=== PATIENT | female | born 1940 | race African-American/Black ===

== ENCOUNTER 2017-04-22 17:38 | Emergency (ER) | payer MEDICARE, MEDICAID ==
[~2017-04-22] VITALS: Ht 160 cm; Wt 82.0 kg
[~2017-04-22 17:38] MED LIST: AMIT25TA9; AMLO5TAB4; CLOB60CR4; DONE5TAB33; HYDR-4005; LANS30CA55; MELO-57; MEMA10TA11; RISE35TA8; ROSU10TA
[2017-04-22] MEDS ORDERED: SODIUM CHLORIDE 0.9% 1,000 ML IV ONE (18:34)
[2017-04-22] MEDS ORDERED: KETOROLAC 30MG/ML VIAL IV ONE (18:45)
[2017-04-22] MEDS ORDERED: LORAZEPAM 2MG/ML CPJ IV PRN (18:45)
[2017-04-22 18:56] LABS: BASOPHILS % 1.3 % (0.0-2.0); EOSINOPHILS % 1.8 % (0.0-5.0); HEMATOCRIT. 34.4 % (36.0-48.0); HEMOGLOBIN. 11.4 g/dL (12.0-16.0); MEAN CORPUSCULAR HEMOGLOBIN 29.8 pg (28.0-32.0); MEAN CORPUSCULAR VOLUME 89.9 fL (81.0-99.0); MEAN PLATELET VOLUME 6.9 fl (7.4-10.4); NEUTROPHILS % 43.9 % (40.0-76.0); PLATELET 205 x1000/uL (130-400); RED BLOOD CELL COUNT 3.83 mill/uL (4.2-5.4); RED CELL DISTRIBUTION WIDTH 13.2 % (11.6-14.6)
[2017-04-22 19:02] LABS: CHLORIDE 109 mEq/L (98-107)
[2017-04-22 19:06] LABS: CARBON DIOXIDE 28 mEq/L (21-32); ETHANOL BLOOD < 10 mg/dL
[2017-04-22 20:16] LABS: CLARITY URINE CLEAR (CLEAR); COLOR URINE YELLOW (YELLOW); GLUCOSE URINE NEGATIVE (NEGATIVE); KETONES URINE NEGATIVE (NEGATIVE); LEUKOCYTE ESTERASE URINE NEGATIVE (NEGATIVE); NITRITE URINE NEGATIVE (NEGATIVE); OCCULT BLOOD URINE NEGATIVE (NEGATIVE); PH URINE 6.5 (4.5-8.0); PROTEIN URINE NEGATIVE (NEGATIVE); SPECIFIC GRAVITY URINE 1.014 (1.005-1.030); UROBILINOGEN URINE 0.2 E.U./dL (0.2-1.0)
[2017-04-22 20:26] LABS: *AMPHETAMINES SCREEN URINE NEGATIVE (NEGATIVE); *BARBITURATES SCREEN URINE NEGATIVE (NEGATIVE); *BENZODIAZEPINES SCREEN URINE NEGATIVE (NEGATIVE); *COCAINE SCREEN URINE NEGATIVE (NEGATIVE); CANNABINOID URINE SCREEN NEGATIVE (NEGATIVE); METHADONE URINE SCREEN NEGATIVE (NEGATIVE); OPIATES URINE SCREEN PRESUMTIVE POSITIVE (NEGATIVE); PHENCYCLIDINE URINE SCREEN NEGATIVE (NEGATIVE)
[2017-04-22 20:53] VITALS: BP 127/72
== END 2017-04-22 21:32 | disposition home or self-care (01) ==
LOC: ER 21:29
DX: S20.221A Contusion of right back wall of thorax, initial encounter (principal); X58.XXXA Exposure to other specified factors, initial encounter; Y93.9 Activity, unspecified; Y92.9 Unspecified place or not applicable; I10 Essential (primary) hypertension
CPT/HCPCS: 36415; 71010; 80053; 80305; 81003; 85025; 96374; 99285; G0482; J1885; J2060; J7030

== ENCOUNTER 2017-12-17 11:40 | Emergency (ER) | payer MEDICARE, MEDICAID ==
[~2017-12-17] VITALS: Ht 162.6 cm; Wt 83.0 kg
[~2017-12-17 11:40] MED LIST changes: +MELO-104; -MELO-57; -MEMA10TA11; +MEMA10TA2
[2017-12-17] MEDS ORDERED: ONDANSETRON HCL 4MG/2ML VIAL IV STA (13:02)
[2017-12-17] MEDS ORDERED: SODIUM CHLORIDE 0.9% 1,000 ML IV ONE (13:02)
[2017-12-17] MEDS ORDERED: KETOROLAC 30MG/ML VIAL IV STA (13:02)
[2017-12-17 14:15] LABS: BASOPHILS % 0.8 % (0.0-2.0); EOSINOPHILS % 0.9 % (0.0-5.0); HEMATOCRIT. 35.5 % (36.0-48.0); HEMOGLOBIN. 11.8 g/dL (12.0-16.0); LYMPHOCYTES % 38.5 % (20.0-50.0); MEAN CORPUSCULAR HEMOGLOBIN 30.8 pg (28.0-32.0); MEAN CORPUSCULAR VOLUME 92.3 fL (81.0-99.0); MEAN PLATELET VOLUME 6.9 fl (7.4-10.4); MONOCYTES % 10.3 % (2.0-8.0); NEUTROPHILS % 49.5 % (40.0-76.0); PLATELET 220 x1000/uL (130-400); RED BLOOD CELL COUNT 3.84 mill/uL (4.2-5.4)
[2017-12-17 14:19] LABS: PROTHROMBIN TIME 10.6 sec (9.4-11.6)
[2017-12-17 14:34] LABS: CARBON DIOXIDE 29 mEq/L (21-32); CHLORIDE 105 mEq/L (98-107); TROPONIN I 0.02 ng/mL (0.00-0.04)
[2017-12-17] MEDS ORDERED: IOHEXOL-300 100 ML BOTTLE ONE (16:46)
[2017-12-17 18:50] LABS: CLARITY URINE CLEAR (CLEAR); COLOR URINE YELLOW (YELLOW); KETONES URINE NEGATIVE (NEGATIVE); LEUKOCYTE ESTERASE URINE NEGATIVE (NEGATIVE); NITRITE URINE NEGATIVE (NEGATIVE); OCCULT BLOOD URINE NEGATIVE (NEGATIVE); PH URINE 5.5 (4.5-8.0); PROTEIN URINE NEGATIVE (NEGATIVE); SPECIFIC GRAVITY URINE 1.041 (1.005-1.030); UROBILINOGEN URINE 0.2 E.U./dL (0.2-1.0)
[2017-12-17 19:45] VITALS: BP 154/70
== END 2017-12-17 19:50 | disposition home or self-care (01) ==
LOC: ER 13:15
DX: R05 Cough (principal); K21.9 Gastro-esophageal reflux disease without esophagitis; I10 Essential (primary) hypertension; E78.00 Pure hypercholesterolemia, unspecified; M19.90 Unspecified osteoarthritis, unspecified site; F03.90 Unspecified dementia, unspecified severity, without behavioral disturbance, psychotic disturbance, mood disturbance, and anxiety
CPT/HCPCS: 36415; 71045; 74177; 80053; 81003; 83605; 83690; 83880; 84484; 85025; 85610; 93005; 96361; 96374; 96375; 99285; J1885; J2405; J7030; Q9967

== ENCOUNTER 2018-07-08 12:44 | Emergency (ER) | payer MEDICARE, MEDICAID ==
[~2018-07-08] VITALS: Ht 162.6 cm; Wt 84.0 kg
[2018-07-08 14:26] LABS: BASOPHILS % 1.1 % (0.0-2.0); EOSINOPHILS % 3.8 % (0.0-5.0); HEMATOCRIT. 32.4 % (36.0-48.0); HEMOGLOBIN. 10.9 g/dL (12.0-16.0); LYMPHOCYTES % 45.7 % (20.0-50.0); MEAN CORPUSCULAR HEMOGLOBIN 30.9 pg (28.0-32.0); MEAN CORPUSCULAR VOLUME 91.8 fL (81.0-99.0); MEAN PLATELET VOLUME 7.6 fl (7.4-10.4); MONOCYTES % 11.4 % (2.0-8.0); PLATELET 225 x1000/uL (130-400); RED BLOOD CELL COUNT 3.53 mill/uL (4.2-5.4); RED CELL DISTRIBUTION WIDTH 13.3 % (11.6-14.6)
[2018-07-08 14:29] LABS: CHLORIDE 110 mEq/L (98-107)
[2018-07-08] MEDS ORDERED: IBUPROFEN 600MG TABLET PO ONE (15:30)
[2018-07-08] MEDS ORDERED: TRAMADOL 50MG TABLET PO ONE (15:30)
[2018-07-08 18:44] VITALS: BP 131/70
== END 2018-07-08 19:14 | disposition home or self-care (01) ==
LOC: ER 12:44
DX: M17.0 Bilateral primary osteoarthritis of knee (principal); R26.2 Difficulty in walking, not elsewhere classified; I10 Essential (primary) hypertension; E78.00 Pure hypercholesterolemia, unspecified; F03.90 Unspecified dementia, unspecified severity, without behavioral disturbance, psychotic disturbance, mood disturbance, and anxiety; Z79.899 Other long term (current) drug therapy
CPT/HCPCS: 36415; 71045; 80053; 83880; 84484; 85025; 85379; 85610; 93005; 99285

== ENCOUNTER 2019-08-07 07:12 | Emergency (ER) | payer MEDICARE, MEDICAID ==
[~2019-08-07] VITALS: Ht 162.6 cm; Wt 84.0 kg
[~2019-08-07 07:12] MED LIST changes: +CRES10; -ROSU10TA
[2019-08-07] MEDS ORDERED: MORPHINE SULFATE 10 MG/ML CPJ IM ONE (07:45)
[2019-08-07] MEDS ORDERED: KETOROLAC 60MG/2ML VIAL IM ONE (07:45)
[2019-08-07 08:17] LABS: BASOPHILS % 0.9 % (0.0-2.0); EOSINOPHILS % 3.1 % (0.0-5.0); HEMATOCRIT. 32.2 % (36.0-48.0); HEMOGLOBIN. 10.6 g/dL (12.0-16.0); LYMPHOCYTES % 49.4 % (20.0-50.0); MEAN CORPUSCULAR VOLUME 94.3 fL (81.0-99.0); MEAN PLATELET VOLUME 7.5 fl (7.4-10.4); MONOCYTES % 7.5 % (2.0-8.0); NEUTROPHILS % 39.1 % (40.0-76.0); PLATELET 198 x1000/uL (130-400); RED BLOOD CELL COUNT 3.41 mill/uL (4.2-5.4); RED CELL DISTRIBUTION WIDTH 13.5 % (11.6-14.6)
[2019-08-07 08:29] LABS: CHLORIDE 111 mEq/L (98-107)
[2019-08-07 08:39] LABS: CLARITY URINE CLOUDY (CLEAR); COLOR URINE YELLOW (YELLOW); KETONES URINE NEGATIVE (NEGATIVE); LEUKOCYTE ESTERASE URINE 1+ (NEGATIVE); NITRITE URINE NEGATIVE (NEGATIVE); OCCULT BLOOD URINE NEGATIVE (NEGATIVE); PROTEIN URINE NEGATIVE (NEGATIVE); SPECIFIC GRAVITY URINE 1.014 (1.005-1.030); UROBILINOGEN URINE 0.2 E.U./dL (0.2-1.0)
[2019-08-07 08:56] VITALS: BP 122/49
== END 2019-08-07 09:07 | disposition home or self-care (01) ==
LOC: ER 08:18
DX: M19.90 Unspecified osteoarthritis, unspecified site (principal); M25.551 Pain in right hip; N39.0 Urinary tract infection, site not specified; I10 Essential (primary) hypertension
CPT/HCPCS: 36415; 72170; 80053; 81003; 83690; 83880; 84484; 85025; 87086; 96372; 99284; J1885; J2270

== ENCOUNTER 2019-11-11 09:45 | Emergency (ER) | payer MEDICARE, MEDICAID ==
[~2019-11-11] VITALS: Ht 162.6 cm; Wt 90.0 kg
[2019-11-11] MEDS ORDERED: TETRACAINE 0.5% OPHTH DROPS 4ML RIGHTEYE ONE (12:30)
[2019-11-11] MEDS ORDERED: FLUORESCEIN SODIUM 1MG/STRIP RIGHTEYE ONE (12:30)
[2019-11-11 13:47] VITALS: BP 130/60
== END 2019-11-11 13:39 | disposition home or self-care (01) ==
LOC: ER 09:45
DX: H11.31 Conjunctival hemorrhage, right eye (principal); I10 Essential (primary) hypertension; M19.90 Unspecified osteoarthritis, unspecified site
CPT/HCPCS: 99283

== ENCOUNTER 2020-01-10 15:59 | Emergency (ER) | payer MEDICARE, MEDICAID ==
[~2020-01-10] VITALS: Ht 162.6 cm; Wt 83.0 kg
[2020-01-10 16:15] VITALS: BP 144/69
== END 2020-01-10 19:21 | disposition home or self-care (01) ==
LOC: ER 15:59
DX: J06.9 Acute upper respiratory infection, unspecified (principal); I10 Essential (primary) hypertension; Z87.39 Personal history of other diseases of the musculoskeletal system and connective tissue
CPT/HCPCS: 99283

== ENCOUNTER 2021-07-01 16:02 | Emergency (ER) | payer MEDICARE, MEDICAID ==
[~2021-07-01] VITALS: Ht 162.6 cm; Wt 79.0 kg
[2021-07-01 16:12] VITALS: BP 105/53
[2021-07-01] MEDS ORDERED: DOXY100C2 MT (17:50)
== END 2021-07-01 18:34 | disposition home or self-care (01) ==
LOC: ER 16:02
DX: L03.115 Cellulitis of right lower limb (principal); I10 Essential (primary) hypertension; Z79.899 Other long term (current) drug therapy
CPT/HCPCS: 99281

== ENCOUNTER 2021-07-08 15:08 | Emergency (ER) | payer MEDICARE, MEDICAID ==
[~2021-07-08] VITALS: Ht 162.6 cm; Wt 80.0 kg
[~2021-07-08 15:08] MED LIST changes: +DOXY100C2 MT
[2021-07-08 19:25] VITALS: BP 148/80
== END 2021-07-08 18:45 | disposition home or self-care (01) ==
LOC: ER 15:08
DX: L03.115 Cellulitis of right lower limb (principal); I10 Essential (primary) hypertension; Z79.899 Other long term (current) drug therapy; Z98.890 Other specified postprocedural states
CPT/HCPCS: 93971; 99284

== ENCOUNTER 2021-08-07 13:40 | Emergency (ER) | payer MEDICARE, MEDICAID ==
[~2021-08-07] VITALS: Ht 170.2 cm; Wt 70.0 kg
[~2021-08-07 13:40] MED LIST changes: -MEMA10TA2; +MEMA10TA2 PO
[2021-08-07] MEDS ORDERED: ALBUTEROL 6.7GM HFA INHALER ORI ONE (14:45)
[2021-08-07] MEDS ORDERED: ALBU6.7H9 INH (15:49)
[2021-08-07 16:41] VITALS: BP 149/84
[2021-08-14] MEDS ORDERED: FERR325T6 PO (23:07)
[2021-08-14] MEDS ORDERED: DONE10TA36 PO (23:07)
[2021-08-14] MEDS ORDERED: AMLO5TAB88 PO (23:07)
[2021-08-14] MEDS ORDERED: ATOR40TA70 PO (23:07)
[2021-08-14] MEDS ORDERED: OMEP20TA2 PO (23:07)
== END 2021-08-07 16:43 | disposition home or self-care (01) ==
LOC: ER 13:40
DX: T59.91XA Toxic effect of unspecified gases, fumes and vapors, accidental (unintentional), initial encounter (principal); X58.XXXA Exposure to other specified factors, initial encounter; Y93.89 Activity, other specified; Y92.89 Other specified places as the place of occurrence of the external cause; Y99.8 Other external cause status
CPT/HCPCS: 71045; 93005; 99283

== ENCOUNTER 2023-08-22 17:46 | Emergency (ER) | payer MEDICARE, MEDICAID ==
[~2023-08-22] VITALS: Ht 162.6 cm; Wt 76.0 kg
[~2023-08-22 17:46] MED LIST changes: +ALBU6.7H3 INH; -AMIT25TA9; -AMLO5TAB4; +AMLO5TAB88 PO; +ATOR40TA70 PO; -CLOB60CR4; -CRES10; +DONE-53 PO; -DONE5TAB33; -DOXY100C2 MT; +FERR325T6 PO; -HYDR-4005; -LANS30CA55; -MELO-104; +OMEP20TA23 PO; -RISE35TA8
[2023-08-22 17:54] VITALS: BP 125/53; PULSE 72; RESP 18; O2SAT 99
[2023-08-22 18:30] VITALS: TEMP 98.9
[2023-08-22] MEDS ORDERED: ACETAMINOPHEN 325MG TABLET PO ONE (18:30)
[2023-08-22] MEDS ORDERED: CAPS42.514 TP (20:25)
== END 2023-08-22 21:48 | disposition home or self-care (01) ==
LOC: ER 17:46
DX: M25.511 Pain in right shoulder (principal); M19.011 Primary osteoarthritis, right shoulder; F03.90 Unspecified dementia, unspecified severity, without behavioral disturbance, psychotic disturbance, mood disturbance, and anxiety; I10 Essential (primary) hypertension; Z79.899 Other long term (current) drug therapy
CPT/HCPCS: 73030; 99283

== ENCOUNTER 2025-02-15 08:44 | Emergency (ER) | payer MEDICARE, MEDICAID ==
[~2025-02-15] VITALS: Ht 160 cm; Wt 70.0 kg
[~2025-02-15 08:44] MED LIST changes: +AMLO10TA4 MT; -AMLO5TAB88 PO; +ASPI-1406 PO; +FOLI-43 MT; +MULT-1279 MT
[2025-02-15 08:48] VITALS: BP 128/56; PULSE 70; RESP 16; TEMP 36.6; O2SAT 100
[2025-02-15 09:45] LABS: BASOPHILS % 0.5 % (0.0-2.0); DIFFERENTIAL COMMENT 0; EOSINOPHILS % 3.4 % (0.0-5.0); HEMATOCRIT. 24.8 % (36.0-48.0); HEMOGLOBIN. 7.9 g/dL (12.0-16.0); LYMPHOCYTES % 39.1 % (20.0-50.0); MEAN CORPUSCULAR HEMOGLOBIN 32.5 pg (28.0-32.0); MEAN CORPUSCULAR HGB CONC 31.8 g/dL (31.0-37.0); MEAN CORPUSCULAR VOLUME 102.2 fL (81.0-99.0); MEAN PLATELET VOLUME 7.7 fl (7.4-10.4); MONOCYTES % 8.6 % (2.0-8.0); NEUTROPHILS % 48.4 % (40.0-76.0); PLATELET 210 x1000/uL (130-400); RED BLOOD CELL COUNT 2.42 mill/uL (4.2-5.4); RED CELL DISTRIBUTION WIDTH 15.9 % (11.6-14.6); WHITE BLOOD COUNT 3.1 x1000/uL (4.5-11.0)
[2025-02-15 09:56] LABS: CHLORIDE 107 mEq/L (98-107); SODIUM 144 mEq/L (136-145)
[2025-02-15 09:57] LABS: CARBON DIOXIDE 29 mEq/L (21-32)
[2025-02-15 10:03] LABS: GLUCOSE 95 mg/dL (70-105); TROPONIN I HIGH SENSITIVITY 10 ng/L (3.0-34); UREA NITROGEN BLOOD 24 mg/dL (9-23)
[2025-02-15 10:07] LABS: THYROID STIMULATING HORMONE 0.66 uIU/mL (0.55-4.78)
[2025-02-15 11:13] LABS: TROPONIN I HIGH SENSITIVITY 10 ng/L (3.0-34)
== END 2025-02-15 09:21 | disposition home or self-care (01) ==
LOC: ER 08:44
DX: R00.2 Palpitations (principal); I10 Essential (primary) hypertension; M19.90 Unspecified osteoarthritis, unspecified site; Z79.82 Long term (current) use of aspirin; Z79.899 Other long term (current) drug therapy
CPT/HCPCS: 36415; 71045; 80048; 84443; 84484; 85025; 93005; 99285

== ENCOUNTER 2025-04-27 10:30 | Inpatient (IN) | payer MEDICARE, MEDICAID ==
[~2025-04-27] VITALS: Ht 162.6 cm; Wt 61.2 kg
[~2025-04-27 10:30] MED LIST changes: +AMLO-905 MT; -AMLO10TA4 MT; -ASPI-1406 PO
[2025-04-27] MEDS: ACETAMINOPHEN 325MG TABLET PO ONE (10:45)
[2025-04-27 11:07] LABS: BASOPHILS % 0.2 % (0.0-2.0); DIFFERENTIAL COMMENT 0; HEMATOCRIT. 24.6 % (36.0-48.0); LYMPHOCYTES % 13.6 % (20.0-50.0); MEAN CORPUSCULAR HEMOGLOBIN 33.1 pg (28.0-32.0); MEAN CORPUSCULAR HGB CONC 32.7 g/dL (31.0-37.0); MONOCYTES % 5.2 % (2.0-8.0); PLATELET 229 x1000/uL (130-400); RED BLOOD CELL COUNT 2.43 mill/uL (4.2-5.4); RED CELL DISTRIBUTION WIDTH 17.8 % (11.6-14.6)
[2025-04-27 11:15] LABS: CHLORIDE 111 mEq/L (98-107); POTASSIUM 3.1 mEq/L (3.5-5.1); SODIUM 145 mEq/L (136-145)
[2025-04-27 11:17] LABS: CALCIUM 10.5 mg/dL (8.7-10.4); CARBON DIOXIDE 26 mEq/L (21-32)
[2025-04-27 11:22] LABS: CREATININE 0.8 mg/dL (0.6-1.0); GLUCOSE 116 mg/dL (70-105); UREA NITROGEN BLOOD 15 mg/dL (9-23)
[2025-04-27 11:24] LABS: ALANINE AMINOTRANSFERASE < 7 IU/L (10-49); ALBUMIN 3.4 g/dL (3.2-4.8); ASPARTATE AMINOTRANSFERASE 11 IU/L (<34); BILIRUBIN DIRECT 0.1 mg/dL (<=3.0); BILIRUBIN TOTAL 0.3 mg/dL (0.1-1.0); PROTEIN TOTAL 7.5 g/dL (6.0-8.3)
[2025-04-27] MEDS: ACETAMINOPHEN 325MG TABLET PO SCH (13:49)
[2025-04-27 16:18] VITALS: BP 135/57; PULSE 57; RESP 18; TEMP 36.5
[2025-04-27] MEDS ORDERED: IPRATROPIUM/ALBUTEROL 0.5-3(2.5)MG/3ML NEB NEB PRN (17:15)
[2025-04-27] MEDS ORDERED: ONDANSETRON HCL 4MG/2ML INJ IV PRN (17:15)
[2025-04-27] MEDS ORDERED: CLONIDINE 0.1MG TABLET PO PRN (17:15)
[2025-04-27] MEDS ORDERED: MAGNESIUM/ALUMINUM HYDROXIDE/SIMETHICONE 30ML UDC PO PRN (17:15)
[2025-04-27] MEDS ORDERED: NA PHOS,M-B/NA PHOS,DI-BA ENEMA 118ML PR PRN (17:15)
[2025-04-27 18:00] VITALS: BP 129/49; PULSE 62; RESP 18; TEMP 36.1; O2SAT 97
[2025-04-27 20:00] VITALS: BP 128/55; PULSE 71; RESP 16; TEMP 36.4; O2SAT 100
[2025-04-27] MEDS: SODIUM CHLORIDE 0.9% 1,000 ML IV SCH (21:26)
[2025-04-27] MEDS: POTASSIUM CHLORIDE 20MEQ TABLET SR PO NR (22:02)
[2025-04-27] MEDS: DOCUSATE SODIUM 100MG CAPSULE PO PRN (22:03)
[2025-04-28] VITALS: BP 119/68; PULSE 73; RESP 18; TEMP 36.7; O2SAT 99
[2025-04-28 04:00] VITALS: BP 125/55; PULSE 65; RESP 19; TEMP 36.4; O2SAT 97
[2025-04-28] MEDS: ACETAMINOPHEN 325MG TABLET PO PRN (06:25)
[2025-04-28 08:00] VITALS: BP 141/52; PULSE 64; RESP 18; TEMP 36.6; O2SAT 97
[2025-04-28 12:00] VITALS: BP 126/53; PULSE 68; RESP 18; TEMP 36.6; O2SAT 99
[2025-04-28 16:00] VITALS: BP 146/49; PULSE 65; RESP 18; TEMP 36.6; O2SAT 100
[2025-04-28 20:00] VITALS: BP 114/40; PULSE 67; RESP 18; TEMP 35.8; O2SAT 100
[2025-04-28 22:04] LABS: CALCIUM 9.8 mg/dL (8.7-10.4); CARBON DIOXIDE 25 mEq/L (21-32)
[2025-04-28 22:09] LABS: CREATININE 0.7 mg/dL (0.6-1.0); GLUCOSE 93 mg/dL (70-105); UREA NITROGEN BLOOD 10 mg/dL (9-23)
[2025-04-28 22:12] LABS: CHLORIDE 110 mEq/L (98-107); SODIUM 142 mEq/L (136-145)
[2025-04-29] VITALS: BP 139/41; PULSE 65; RESP 18; TEMP 35.7; O2SAT 98
[2025-04-29 04:00] VITALS: BP 132/50; PULSE 69; RESP 18; TEMP 36.9; O2SAT 95
[2025-04-29 08:00] VITALS: BP 133/47; PULSE 60; RESP 16; TEMP 36.4; O2SAT 100
[2025-04-29 12:00] VITALS: BP 123/38; PULSE 69; RESP 17; TEMP 36.6; O2SAT 97
[2025-04-29 12:57] LABS: BASOPHILS % 0.7 % (0.0-2.0); EOSINOPHILS % 3.1 % (0.0-5.0); HEMATOCRIT. 21.7 % (36.0-48.0); HEMOGLOBIN. 7.3 g/dL (12.0-16.0); LYMPHOCYTES % 31.7 % (20.0-50.0); MEAN CORPUSCULAR HEMOGLOBIN 33.1 pg (28.0-32.0); MEAN CORPUSCULAR HGB CONC 33.7 g/dL (31.0-37.0); MEAN CORPUSCULAR VOLUME 98.1 fL (81.0-99.0); MEAN PLATELET VOLUME 7.2 fl (7.4-10.4); MONOCYTES % 7.7 % (2.0-8.0); NEUTROPHILS % 56.8 % (40.0-76.0); PLATELET 212 x1000/uL (130-400); RED BLOOD CELL COUNT 2.21 mill/uL (4.2-5.4); WHITE BLOOD COUNT 3.8 x1000/uL (4.5-11.0)
[2025-04-29 13:03] LABS: CHLORIDE 111 mEq/L (98-107); POTASSIUM 3.3 mEq/L (3.5-5.1); SODIUM 143 mEq/L (136-145)
[2025-04-29 13:04] LABS: CARBON DIOXIDE 28 mEq/L (21-32)
[2025-04-29 13:05] LABS: CALCIUM 9.7 mg/dL (8.7-10.4)
[2025-04-29 13:10] LABS: CREATININE 0.7 mg/dL (0.6-1.0); GLUCOSE 116 mg/dL (70-105); UREA NITROGEN BLOOD 13 mg/dL (9-23)
[2025-04-29 16:00] VITALS: BP 144/54; PULSE 76; RESP 18; TEMP 36.7; O2SAT 98
[2025-04-29 16:28] VITALS: BP 144/54; PULSE 76; TEMP 98.1; O2SAT 98
[2025-04-29] MEDS ORDERED: ALBUTEROL 6.7GM HFA INHALER INH SCH (16:30)
[2025-04-29] MEDS ORDERED: ALBUTEROL (0.083%) 2.5MG/3ML NEB HHN SCH (20:00)
[2025-04-29] MEDS ORDERED: ATORVASTATIN CALCIUM 40MG TABLET PO SCH (21:00)
[2025-04-30] MEDS ORDERED: MEMANTINE HCL 10MG TABLET PO SCH (09:00)
[2025-04-30] MEDS ORDERED: FOLIC ACID 1MG TABLET PO SCH (09:00)
[2025-04-30] MEDS ORDERED: AMLODIPINE 10MG TABLET PO SCH (09:00)
== END 2025-04-29 18:40 | disposition home or self-care (01) | DRG 390 ==
LOC: ER 10:30 → 6EST 12:59 → EDBEDREQTM 13:04 → EDBEDREQ 13:04 → ENRESERV 13:21
PROVIDERS: ADMIT Internal Medicine; ATTEND Internal Medicine
DX: K56.41 Fecal impaction (principal); K57.30 Diverticulosis of large intestine without perforation or abscess without bleeding; K80.20 Calculus of gallbladder without cholecystitis without obstruction; E66.01 Morbid (severe) obesity due to excess calories; I10 Essential (primary) hypertension; D64.9 Anemia, unspecified; Z86.73 Personal history of transient ischemic attack (TIA), and cerebral infarction without residual deficits; Z68.23 Body mass index [BMI] 23.0-23.9, adult
CPT/HCPCS: 36415; 74176; 80048; 80076; 85025; 99285; A4606; J7030